=== PATIENT | male | born 1950 | race Caucasian/White ===

== ENCOUNTER 2023-09-10 08:26 | Day surgery (SDC) | payer OTHER ==
[2023-09-09 13:00] VITALS: BMI 22.4
[~2023-09-10 08:26] MED LIST: EPINEPHrine 0.3 MG in Ophthalmic Irrigation Solution 500 ML IRR SCH
[2023-09-10] MEDS ORDERED: Cyclopentolate 1% Opth Drop 2 ML BOT ONE (09:24)
[2023-09-10] MEDS ORDERED: PHENYLephrine 2.5% Ophth Soln 15 ml Bottle ONE (09:24)
[2023-09-10] MEDS ORDERED: Lidocaine 2% PF 5 ML VIAL ONE (09:33)
[2023-09-10] MEDS ORDERED: PROPOFOL 20 ML ONE (09:33)
[2023-09-10] MEDS ORDERED: fentaNYL 50 mcg/mL 1 mL Vial ONE (09:33)
[2023-09-10] MEDS ORDERED: Famotidine/PF 20 mg/2ml Vial ONE (09:41)
[2023-09-10] MEDS ORDERED: GLYCOPYRROLATE/PF 0.2 MG/ML VIAL ONE (10:05)
[2023-09-10] MEDS ORDERED: ePHEDrine Sulfate 50 MG/10 ML VIAL ONE (10:08)
[2023-09-10] MEDS ORDERED: Ondansetron PF 4 MG/2 ML Vial ONE (10:11)
[2023-09-10] MEDS ORDERED: PHENYLEPHRINE-NS 100 MCG/ML 10 ML SYRINGE ONE (10:20)
== END 2023-09-10 14:50 | disposition home or self-care (01) ==
LOC: SDC 08:26
PROVIDERS: ATTEND Ophthalmology Retina Specialist
PROC: 08T43ZZ Resection of Right Vitreous, Percutaneous Approach (ICD-10-PCS; principal; 2023-09-10)
PROC: 08N43ZZ Release Right Vitreous, Percutaneous Approach (ICD-10-PCS; 2023-09-10)
PROC: 08PJ3JZ Removal of Synthetic Substitute from Right Lens, Percutaneous Approach (ICD-10-PCS; 2023-09-10)
PROC: 08RJ3JZ Replacement of Right Lens with Synthetic Substitute, Percutaneous Approach (ICD-10-PCS; 2023-09-10)
DX: T85.22XA Displacement of intraocular lens, initial encounter (principal)
CPT/HCPCS: 66986; 67039; 67041; J0171; J2001; J2405; J2704; J3010; J3490; S0028; V2632